=== PATIENT | female | born 1955 | race Caucasian/White ===

== ENCOUNTER → 2018-05-09 | Outpatient (CLI) | payer OTHER ==
[~2018-05-09] MED LIST: ALBU90OI6 INH; Cyclobenzaprine5 MG PO; ERGO50000 PO; FAMO20 PO; FLUSAL2505 INH; FURO20 PO; GLUC500 PO; IBUP600 PO; Imitrex100 MG PO; LOSA50 PO; MONT10T PO; NIAC500 PO; OMEP20ER PO; POTCHL20ER PO; Prinivil10 MG; TRAM50 PO
== END | disposition home or self-care (01) ==
LOC: LAB SHORT 11:23 → LAB UCHC 11:23
DX: E78.5 Hyperlipidemia, unspecified (principal)
CPT/HCPCS: 82043